=== PATIENT | female | born 1990 | race Caucasian/White ===

== ENCOUNTER 2020-10-23 15:58 | Inpatient (IN) | payer OTHER, SELFPAY ==
[2020-10-23] VITALS (17 sets, daily range): BP systolic 121–152; BP diastolic 62–99; PULSE 91–142; RESP 20; TEMP 36.9–37.1; BMI 53.6
[2020-10-23 17:12] LABS: Basophils Percent Auto 0.2 % (0.2-1.2); Eosinophils Absolute Auto 0.1 K/mm3 (0-0.3); Eosinophils Percent Auto 0.7 % (0-4.4); Hematocrit 36.3 % (37.0-47.0); Hemoglobin 11.4 g/dL (12.0-15.0); Immature Granulocyte Absolute 0.07 K/mm3 (0.00-0.031); Immature Granulocyte Percent A 0.7 % (0-0.5); Lymphocytes Absolute Auto 2.49 K/mm3 (0.9-3.2); Lymphocytes Percent Auto 23.8 % (18.3-44.2); Mean Corpuscular HGB Conc 31.4 g/dl (32-36); Mean Corpuscular Hemoglobin 24.2 pg (26-34); Mean Corpuscular Volume 77.1 fl (80-100); Mean Platelet Volume 10.4 fl (7.4-10.4); Monocytes Absolute Auto 0.6 K/mm3 (0.1-0.6); Monocytes Percent Auto 5.8 % (2.6-8.5); Neutrophils Absolute Auto 7.2 K/mm3 (1.3-6.7); Neutrophils Percent Auto 68.8 % (45.5-73.1); Platelet Count Result 284 k/mm3 (150-375); Red Blood Count 4.71 M/mm3 (4.2-5.4); Red Cell Distribution Width 17.2 % (11.5-14.5); White Blood Count 10.5 K/mm3 (4.5-10.0)
[2020-10-23] MEDS: DINOPROSTONE 10 MG VAG INSERT VAGINAL (17:15)
--- NOTE | 2020-10-23 17:15 | LDADM ---
This patient, Shalini Villagran, was admitted to Labor/Delivery/Recovery 107 on 10/23/20 at 15:58. Plans for labor, pain management and were discussed with patient. Patient/family oriented to hospital policies and general routines including ID bracelet, bed and alarms, visiting hours, pain management, procedures, bathroom and other care routines, personal items, smoking policy, room service/diet and guest tray routines, security routines, and visiting hours. Patient/Family are encouraged to report perceived risks to care and to ask questions if they do not understand what they are told or what they should do. See OBIX for further documentation.
[2020-10-23 17:28] LABS: Alanine Aminotransferase 13 U/L (4-35); Albumin Level 3.5 g/dL (3.5-5.1); Alkaline Phosphatase 181 U/L (38-126); Anion Gap 9 mmol/L (8-16); Aspartate Amino Transferase 23 U/L (14-36); Bilirubin,Total 0.3 mg/dL (0.2-1.3); Blood Urea Nitrogen 8 mg/dL (7-17); Calcium 9.1 mg/dL (8.4-10.2); Carbon Dioxide 19 mmol/L (22-30); Chloride 106 mmol/L (98-107); Estimated Glomerular Filt Rate > 60; Glucose 73 mg/dL (65-110); Potassium 3.6 mmol/L (3.4-5.0); Sodium 134 mmol/L (137-145); Uric Acid 5.3 mg/dL (2.5-7.5)
--- NOTE | 2020-10-23 17:32 | WPDANESEPPF ---
Anes - Initial Pre Proc Eval Procedure: labor epidural Date/Time: 10/23/20 17:32 Surgeon: Senia Case MD Pre Op Diagnosis: labor pain Pre Op Diagnosis: Induction of Labor for Hypertension in Patient Data Age: 30 Gender: F Height: Weight: Last Vital Signs Pulse 102 H 10/23/20 17:31 BP 134/79 10/23/20 17:31 Allergies Allergy/AdvReac Type Severity Reaction Status Date / Time No Known Allergies Allergy Verified 10/18/20 13:39 Home Medications Medication Instructions Recorded Confirmed Type ferrous sulfate mg 10/18/20 History prenat.vits,faith,shg-vmcs-iqnpn 1 tablet PO DAILY 10/18/20 10/18/20 History [ #2] Laboratory Tests 10/23/20 10/23/20 10/23/20 17:04 17:04 17:04 WBC 10.5 K/mm3 H K/mm3 (4.5-10.0) RBC 4.71 M/mm3 M/mm3 (4.2-5.4) Hgb 11.4 g/dL L g/dL (12.0-15.0) Hct 36.3 % L % (37.0-47.0) MCV 77.1 fl L fl (80-100) MCH 24.2 pg L pg (26-34) MCHC 31.4 g/dl L g/dl (32-36) RDW 17.2 % H % (11.5-14.5) Plt Count 284 k/mm3 k/mm3 (150-375) MPV 10.4 fl fl (7.4-10.4) Immature Gran % (Auto) 0.7 % H % (0-0.5) Neut % (Auto) 68.8 % % (45.5-73.1) Lymph % (Auto) 23.8 % % (18.3-44.2) Leake % (Auto) 5.8 % % (2.6-8.5) Eos % (Auto) 0.7 % % (0-4.4) Baso % (Auto) 0.2 % % (0.2-1.2) Lymph # (Auto) 2.49 K/mm3 K/mm3 (0.9-3.2) Leake # (Auto) 0.6 K/mm3 K/mm3 (0.1-0.6) Eos # (Auto) 0.1 K/mm3 K/mm3 (0-0.3) Baso # (Auto) 0.0 K/mm3 K/mm3 (0.0-0.1) Abs Immat Gran (auto) 0.07 K/mm3 H K/mm3 (0.00-0.031) Absolute Neuts (auto) 7.2 K/mm3 H K/mm3 (1.3-6.7) Absolute Nucleated RBC 0.0 K/mm3 K/mm3 (0.0-0.012) Nucleated RBC % 0.0 % % (0.0-0.2) Sodium Potassium Chloride Carbon Dioxide Anion Gap BUN Creatinine Estim Creat Clear Calc Estimated GFR Glucose Uric Acid Cancelled Calcium Total Bilirubin AST ALT Alkaline Phosphatase Total Protein Albumin RPR Pending 10/23/20 17:04 WBC RBC Hgb Hct MCV MCH MCHC RDW Plt Count MPV Immature Gran % (Auto) Neut % (Auto) Lymph % (Auto) Leake % (Auto) Eos % (Auto) Baso % (Auto) Lymph # (Auto) Leake # (Auto) Eos # (Auto) Baso # (Auto) Abs Immat Gran (auto) Absolute Neuts (auto) Absolute Nucleated RBC Nucleated RBC % Sodium 134 mmol/L L mmol/L (137-145) Potassium 3.6 mmol/L mmol/L (3.4-5.0) Chloride 106 mmol/L mmol/L (98-107) Carbon Dioxide 19 mmol/L L mmol/L (22-30) Anion Gap 9 mmol/L mmol/L (8-16) BUN 8 mg/dL mg/dL (7-17) Creatinine 0.60 mg/dL L mg/dL (0.7-1.0) Estim Creat Clear Calc Not Reportable Estimated GFR > 60 (59 - ) Glucose 73 mg/dL mg/dL (65-110) Uric Acid 5.3 mg/dL mg/dL (2.5-7.5) Calcium 9.1 mg/dL mg/dL (8.4-10.2) Total Bilirubin 0.3 mg/dL mg/dL (0.2-1.3) AST 23 U/L U/L (14-36) ALT 13 U/L U/L (4-35) Alkaline Phosphatase 181 U/L H U/L (38-126) Total Protein 7.0 g/dL g/dL (6.3-8.2) Albumin 3.5 g/dL g/dL (3.5-5.1) RPR Patient hx anesthesia problems: none Family hx anesthesia problems: none PMF Family History Family History (Updated 10/18/20 @ 13:41 by Deandre Snigh RN) Other No pertinent family history Social History Social History Substance use: never Spiritual care concerns: No Anes - Eval Final PreProcedure Day of Procedure 10/23/20 17:32 ASA class
[2020-10-23] MEDS: ZOLPIDEM TARTRATE (*CRX) 5 MG TABLET PO (22:13)
[2020-10-24] VITALS (168 sets, daily range): BP systolic 84–185; BP diastolic 51–151; PULSE 73–173; RESP 18–20; TEMP 36.5–37.4; O2SAT 96–100
[2020-10-24] MEDS: fentaNYL CITRATE INJ (*CRX) 100 MCG/2 ML VIAL 50 MCG IV PUSH ×2 (05:51→06:54)
[2020-10-24] MEDS: LACTATED RINGERS 1,000 ML 125 ML IV CONT ×2 (05:51→07:35)
[2020-10-24] MEDS: OXYTOCIN 30 UNITS/NS 500 ML 30 UNITS/500 ML BAG 6 UNITS IV CONT (06:37)
--- NOTE | 2020-10-24 08:03 | PM.IMHP ---
H&P: HPI History of Present Illness Date/Time: 10/24/20 08:03 Chief Complaint: induction of labor Narrative: Shalini is a 30yo at 37.3 for IOL for PIH. PC ratio last week 0.19. Denies sx. Had cervidil overnight, now has epidural. complicated by prepreg BMI 46. Review of Systems Review of Systems: All systems reviewed & are unremarkable except as noted in HPI and below PMFSH Family History Family History (Updated 10/23/20 @ 17:34 by Moon Wilhelm RN) Father Hypercholesteremia Social History Social History Smoking packs per day: 0.5 Smoking cigarettes per day: 10.0 Years smoked: 8 Smoking pack-years: 4.00 Smoking status: Former smoker Tobacco type: cigarettes Second hand tobacco smoke exposure: No Substance use: never Spiritual care concerns: No Meds Home Medications and Allergies Home Medications Medication Instructions Recorded Confirmed Type ferrous sulfate 27 mg PO HS 10/18/20 10/23/20 History prenat.vits,faith,tec-rhhx-luyen 1 tablet PO DAILY 10/18/20 10/23/20 History [ #2] Allergies Allergy/AdvReac Type Severity Reaction Status Date / Time No Known Allergies Allergy Verified 10/18/20 13:39 Vital Signs Vital Signs - 24 hr 10/23/20 16:23 10/23/20 16:31 10/23/20 16:32 Temperature 98.7 F Pulse Rate 123 H 101 H Respiratory Rate 20 Blood Pressure 121/74 130/62 Pulse Oximetry 10/23/20 17:01 10/23/20 17:31 10/23/20 18:00 Temperature 98.5 F Pulse Rate 106 H 102 H Respiratory Rate Blood Pressure 127/85 134/79 Pulse Oximetry 10/23/20 18:01 10/23/20 18:31 10/23/20 19:01 Temperature Pulse Rate 97 91 99 Respiratory Rate Blood Pressure 136/88 139/90 142/82 H Pulse Oximetry 10/23/20 19:25 10/23/20 19:31 10/23/20 21:38 Temperature Pulse Rate 142 H 110 H 118 H Respiratory Rate Blood Pressure 127/99 H 124/86 139/92 H Pulse Oximetry 10/23/20 21:46 10/23/20 22:01 10/23/20 22:16 Temperature Pulse Rate 107 H 101 H 104 H Respiratory Rate Blood Pressure 140/89 141/94 H 152/95 H Pulse Oximetry 10/23/20 22:31 10/23/20 22:46 10/24/20 00:21 Temperature Pulse Rate 107 H 106 H 114 H Respiratory Rate Blood Pressure 122/83 124/69 144/110 H Pulse Oximetry 10/24/20 00:30 10/24/20 00:31 10/24/20 00:46 Temperature 98.1 F Pulse Rate 112 H 109 H Respiratory Rate Blood Pressure 90/51 L 117/79 Pulse Oximetry 10/24/20 01:02 10/24/20 01:17 10/24/20 01:31 Temperature Pulse Rate 73 115 H 115 H Respiratory Rate Blood Pressure 185/151 H 150/92 H 112/70 Pulse Oximetry 10/24/20 05:41 10/24/20 05:45 10/24/20 05:46 Temperature Pulse Rate 137 H 129 H Respiratory Rate Blood Pressure 118/67 130/91 H Pulse Oximetry 99 10/24/20 05:50 10/24/20 05:55 10/24/20 06:00 Temperature Pulse Rate Respiratory Rate Blood Pressure Pulse Oximetry 100 100 100 10/24/20 06:01 10/24/20 06:05 10/24/20 06:10 Temperature Pulse Rate 127 H Respiratory Rate Blood Pressure 129/89 Pulse Oximetry 100 99 10/24/20 06:15 10/24/20 06:16 10/24/20 06:20 Temperature Pulse Rate 112 H Respiratory Rate Blood Pressure 134/92 H Pulse Oximetry 100 100 10/24/20 06:25 10/24/20 06:30 10/24/20 06:31 Temperature Pulse Rate 117 H Respiratory Rate Blood Pressure 136/104 H Pulse Oximetry 99 100 10/24/20 06:35 10/24/20 06:37 10/24/20 07:18 Temperature Pulse Rate 122 H Respiratory Rate Blood Pressure 133/94 H Pulse Oximetry 100 100 10/24/20 07:19 10/24/20 07:21 10/24/20 07:23 Temperature Pulse Rate 125 H 117 H Respiratory Rate Blood Pressure 137/91 H 139/92 H Pulse Oximetry 100 10/24/20 07:28 10/24/20 07:31 10/24/20 07:33 Temperature Pulse Rate 136 H 140 H Respiratory Rate Blood Pressure 122/88 127/66 Pulse Oximetry 100 100 10/24/20 07:35 10/24/20 07:36
--- NOTE | 2020-10-24 15:25 | PM.OBPRVD ---
OB - Delivery Note Procedure Delivery date: 10/24/20 Procedure: events: Induced HTN and Labor Induction Induction method: AROM, per pitocin protocol and per cervidil protocol Delivery monitor: external FHT and internal uterine Route of delivery: Laceration Description: Perineal - 2nd Degree Delivery repair: vicryl Specimen: Yes Quantitative Blood Loss (ml): 500 Anesthesia type: Epidural Disposition: floor Complications: placenta retained for 28 minutes Narrative: With adequate expulsive efforts by the mother, the baby's head was delivered OA. The baby's anterior shoulder was delivered under the pubic symphysis without difficulty. The posterior shoulder and the rest of the baby delivered without difficulty. The was placed on the mothers chest and suctioned and stimulated. The cord was clamped and cut after 30 seconds. Mother and baby both stable. Baby Date of : 10/24/20 Time of : 14:47 Weeks of gestation at delivery: 37 Infant gender: Female Weight (pounds): 7 Weight (ounces): 15 presentation: vertex Placenta delivery description: Spontaneous cord vessel description: 3 Vessels, Nuchal Cord and Delayed Cord Clamping score one minute: 8 score five minutes: 9
[2020-10-24] MEDS: OXYTOCIN 30 UNITS/NS 500 ML 30 UNITS/500 ML BAG 125 UNITS IV CONT (15:33)
[2020-10-24] MEDS: BENZOCAINE 20% AER SPR (*SP) 56 GM CAN 1 SPRAY TOPICAL (17:16)
[2020-10-24] MEDS: WITCH HAZEL 40 PADS 1 PAD TOPICAL (17:16)
[2020-10-24] MEDS: IBUPROFEN 600 MG TABLET PO (17:18)
--- NOTE | 2020-10-24 18:04 | OBPPTRN ---
1750 Patient transferred to post room #280 via W/C. Support person present. Oriented to unit, room, information board, rooming in, admission packet and security measures. Patient verbalizes understanding.
[2020-10-25 05:19] VITALS: BP 130/88; PULSE 98; RESP 16; TEMP 36.1; O2SAT 100
[2020-10-25 05:21] LABS: Hematocrit 32.7 % (37.0-47.0); Hemoglobin 10.2 g/dL (12.0-15.0)
[2020-10-25 06:50] LABS: Rapid Plasma Reagin Non-Reactive (NonReactive)
--- NOTE | 2020-10-25 07:33 | P.PNOB_ITS ---
OB - PN: Subj Subjective Date/time seen: 10/25/20 07:33 Patient comments: pain well controlled baby status: NICU feeding status: pumping and storing Narrative: Baby Leidy transferred to [facility] for respiratory needs. Mom would like discharge. BPs 120s-140s/70s-80s. Denies FORTUNE/BV/EP. OB - PN: Obj Data Labs CBC & Chem 7: 10/25/20 05:11 10/23/20 17:04 Labs: Laboratory Results - last 24 hr 10/23/20 10/25/20 17:04 05:11 Hgb 10.2 L Hct 32.7 L RPR Non-reactive OB - PN A/P Plan day: 1 Plan: routine care and discharge home Comments: DC home to be with baby at [facility]. PreE precautions given. NO severe BPs during entire induction and pp course. FU here for BP check 1-2 days and next week with me. Time Spent With Patient Time: Total time spent is greater than 50% in coordination of care (as documented) at patient's floor/unit and/or counseling patient: Time with patient: less than 15 minutes Exam Narrative: NAD abdomen soft, nontender, fundus firm below the umbilicus Extremities nontender, 1+ edema
--- NOTE | 2020-10-25 07:37 | PM.DS ---
DS: Admitting Diagnosis Admitting Diagnosis pih 37 weeks DS: Discharge Diagnosis Discharge Diagnosis (1) PIH ( induced hypertension): Code(s): O13.9 - Gestational [-induced] hypertension without significant proteinuria, unspecified trimester Status: Acute DS: Summary Hospital Course Reason for hospitalization: induction due to PIH at 37 weeks Hospital Course: Shalini was induced with cervidil, pitocin, and AROM. She had a spontaneous and her course was uncomplicated. She never had severe range BPs during her entire admission. Baby was transferred to [facility] so she was discharged on PPD 1. Status at Discharge Functional status at discharge: independent ambulation Time Spent with Patient Time attestation: Total time spent providing and/or coordinating discharge services: Exam Narrative: NAD abdomen soft, appropriately tender Ext non tender, 1+ edema DS: Data Data Completed and Pending Pending studies at discharge: Pending at discharge 10/24/20 15:10 Surgical [PTH] Routine Labs on day of discharge: Labs from last 24 hours 10/25/20 10/23/20 05:11 17:04 Hgb 10.2 L Hct 32.7 L RPR Non-reactive Discharge Plan Discharge Attending physician on discharge: Senia Case Discharging Clinician: Senia Case Anticipated Discharge Date/Time: 10/25/20 11:00 Patient Disposition: Home, Self-Care Activity: may shower and pelvic rest Diet: as tolerated Discharge Instructions: ibuprofen 600mg every 6 hours as needed Patient Instructions: Antibiotic Form Stand Alone Forms: General Discharge Information Follow-up/Referrals: Senia Case MD [Physician] - 1 Week Discharge Medications: Continued ferrous sulfate 134 mg (27 mg iron) Tablet 27 mg PO HS RF: 0 #2 Tablet 1 tablet PO DAILY RF: 0 Date of admission: 10/23/20 15:58 Primary Care Provider: PHYSICIAN,PRE PAROLE COUNSELING AIDE Admitting Provider: Senia Case Attending physician on admission: Senia Case Condition: Stable
[2020-10-25 07:50] VITALS: BP 144/88; PULSE 100; RESP 18; TEMP 36.3; O2SAT 100
--- NOTE | 2020-10-25 08:30 | PC.NURSE ---
Consult with pt., mother is pumping due to infant transfer to [facility]. Mother voices concerns she is pumping and does not have more than a few drops each session. Assured mother this is normal, reviewed progression of colostrum into breastmilk within a few days. Reviewed breast pump care and usage, pumping schedule, nipple care, and collection and storage of breast milk. Encouraged [id number], breast massage and manual expression to stimulate supply. Pumping log provided and reviewed. Assessed patient for correct flange size, placement and draw. Patient verbalizes and demonstrates understanding of instructions. Mother has a Medela for home use. Reviewed regular medications mother is taking. Information provided per Diya. Reviewed community resources on the [facility] website and in the Mom/Baby guide. Information on outpatient services provided. Mother has no further questions at this time.
[2020-10-25] MEDS: MULTIVIT/MIN/PREN/FOL AC/IRON TABLET 1 TAB PO (09:19)
[2020-10-25] MEDS: IBUPROFEN 600 MG TABLET PO (09:19)
[2020-10-25] MEDS: DOCUSATE SODIUM 100 MG CAPSULE PO (09:19)
--- NOTE | 2020-10-25 09:30 | WPDANLDPN2 ---
Anes-Prog Note L&D Date/Time: 10/25/20 09:30 Comfortable throughout: labor and delivery Neuraxial method: epidural Epidural/Spinal procedure site: clean & non-tender Neuro status: Neuro function grossly intact. Cardiovascular status: normal Respiratory status: normal Airway patency: baseline Post-Op hydration status: normal Vital Signs: Last Vital Signs Temp 36.3 C L 10/25/20 07:50 Pulse 100 10/25/20 07:50 Resp 18 10/25/20 07:50 BP 144/88 H 10/25/20 07:50 Pulse Ox 100 10/25/20 07:50 Pain score (VAS): 0/10 I/O: Intake & Output 10/24/20 10/25/20 10/25/20 23:59 07:59 15:59 Output Total 300 Balance -300 Post-procedural complaints: none Patient feedback: Patient satisfied with anesthetic care.
[2020-10-25] MEDS: MEASLES,MUMPS,RUBELLA VACCINE 0.5 ML VIAL SUB-Q (09:37)
[2020-10-25 11:29] VITALS: BP 145/83; PULSE 92; RESP 16; TEMP 36.6; O2SAT 100
[2020-10-27 10:57] VITALS: BP 131/84; PULSE 90; RESP 20; TEMP 36.8; O2SAT 100
== END 2020-10-25 12:45 | disposition home or self-care (01) | DRG 807 ==
LOC: ANHLDR 16:50 → ANHOB2 10-24 17:59
PROVIDERS: Admitting Provider Obstetrics & Gynecology; Visit Provider Obstetrics & Gynecology
DX: O13.4 Gestational [pregnancy-induced] hypertension without significant proteinuria, complicating childbirth (principal); Z37.0 Single live birth; O70.1 Second degree perineal laceration during delivery; Z3A.37 37 weeks gestation of pregnancy; O99.214 Obesity complicating childbirth; E66.9 Obesity, unspecified; O69.81X0 Labor and delivery complicated by cord around neck, without compression, not applicable or unspecified; O76 Abnormality in fetal heart rate and rhythm complicating labor and delivery
CPT/HCPCS: 36415; 80053; 84550; 85014; 85018; 85025; 86592; 86850; 86900; 86901; 90710; A9270; J2590; J2795; J3010; J7120

== ENCOUNTER 2022-12-27 15:00 | Inpatient (IN) | payer OTHER, SELFPAY ==
[2022-12-27] VITALS (24 sets, daily range): BP systolic 120–170; BP diastolic 66–102; PULSE 82–98; TEMP 36.6; BMI 53.7
[2022-12-27 13:50] LABS: Basophils Percent Auto 0.1 % (0.2-1.2); Eosinophils Absolute Auto 0.1 K/mm3 (0-0.3); Eosinophils Percent Auto 0.7 % (0-4.4); Hematocrit 37.4 % (37.0-47.0); Immature Granulocyte Absolute 0.06 K/mm3 (0.00-0.031); Immature Granulocyte Percent A 0.7 % (0-0.5); Lymphocytes Absolute Auto 2.36 K/mm3 (0.9-3.2); Lymphocytes Percent Auto 26.1 % (18.3-44.2); Mean Corpuscular HGB Conc 32.1 g/dl (32-36); Mean Corpuscular Hemoglobin 26.5 pg (26-34); Mean Corpuscular Volume 82.7 fl (80-100); Mean Platelet Volume 11.4 fl (7.4-10.4); Monocytes Absolute Auto 0.4 K/mm3 (0.1-0.6); Monocytes Percent Auto 4.6 % (2.6-8.5); Neutrophils Absolute Auto 6.1 K/mm3 (1.3-6.7); Neutrophils Percent Auto 67.8 % (45.5-73.1); Platelet Count Result 208 k/mm3 (150-375); Red Blood Count 4.52 M/mm3 (4.2-5.4); Red Cell Distribution Width 15.9 % (11.5-14.5)
[2022-12-27 13:53] LABS: Creatinine Urine 123.6 mg/dL; Total Protein Urine Random 9 mg/dL; Ur Ttl Prot Creatinine Ratio 0.07 mg/mg (0-0.20)
[2022-12-27 13:58] LABS: Alanine Aminotransferase 20 U/L (6-35); Albumin Level 3.4 g/dL (3.5-5.1); Alkaline Phosphatase 158 U/L (38-126); Anion Gap 6 mmol/L (8-16); Aspartate Amino Transferase 26 U/L (14-36); Bilirubin,Total 0.5 mg/dL (0.2-1.3); Blood Urea Nitrogen 8 mg/dL (7-17); Calcium 8.6 mg/dL (8.4-10.2); Carbon Dioxide 20 mmol/L (22-30); Chloride 109 mmol/L (98-107); Estimated Glomerular Filt Rate > 60; Glucose 118 mg/dL (65-110); Potassium 3.4 mmol/L (3.4-5.0); Sodium 135 mmol/L (137-145); Uric Acid 6.2 mg/dL (2.5-7.5)
[2022-12-27 14:14] LABS: Appearance Urine Cloudy (Clear); Bacteria Urine 4+ /hpf; Bilirubin Urine Negative (Negative); Blood Urine Negative (Negative); Color Urine Yellow (Yellow); Glucose Urine UA Negative (Negative); Ketones Urine Trace mg/dL (Negative); Leukocyte Esterase Ur 2+ LEU/UL (NEGATIVE); Need Manual Microscopic Reviewed; Nitrate Urine Negative (Negative); Protein Urine Trace mg/dL (Negative); Squamous Epithelial Cell Urine Occasional /hpf (Few); Urobilinogen Urine 0.2 mg/dL (<2.0); WBC Urine 51-100 /hpf (0-3); pH Urine 5.5 (5.0-9.0)
[2022-12-27 14:25] LABS: Add Urine Microscopic? YES
[2022-12-27] MEDS: miSOPROStol 25 MCG TABLET 50 MCG SUBLINGUAL (16:07)
--- NOTE | 2022-12-27 16:11 | LDADM ---
This patient, Shalini Villagran, was admitted to Labor/Delivery/Recovery 108 on 12/27/22 at 15:00. Plans for labor, pain management and were discussed with patient. Patient/family oriented to hospital policies and general routines including ID bracelet, bed and alarms, visiting hours, pain management, procedures, bathroom and other care routines, personal items, smoking policy, room service/diet and guest tray routines, security routines, and visiting hours. Patient/Family are encouraged to report perceived risks to care and to ask questions if they do not understand what they are told or what they should do. See OBIX for further documentation.
--- NOTE | 2022-12-27 16:43 | PM.IMHP ---
H&P: HPI History of Present Illness Date/Time: 12/27/22 16:43 Chief Complaint: elevated blood pressure in office, pt sent over for evaluation, denies headache, visual changes, epigastric pain. Labs reviewed with Dr. Oviedo and will proceed with IOL. complicated by amenia, obesity, hx LGA infant. Review of Systems Review of Systems: All systems reviewed & are unremarkable except as noted in HPI and below PMFSH Family History Family History Father Hypercholesteremia Social History Social History Smoking packs per day: 0.5 Smoking cigarettes per day: 10.0 Years smoked: 8 Smoking pack-years: 4.00 Smoking status: Never smoker Tobacco type: cigarettes Second hand tobacco smoke exposure: No Substance use: never Lack of Transportation: No Lack of Food: Never True Current Housing: I Have Housing Concerned About Future Housing: No Difficulty Paying Gas/Electric Bills: No Difficulty Paying for Meds: No Currently Unemployed: No Education: High School Diploma/GED Difficulty w/ Childcare or Family Care: No Spiritual care concerns: No Meds Home Medications and Allergies Home Medications Medication Instructions Recorded Confirmed Type ferrous sulfate 134 mg (27 mg 27 mg PO HS 10/18/20 12/20/22 History iron) tablet prenat.vits,faith,jym-cvog-bzypd 1 tablet PO DAILY 10/18/20 12/20/22 History aspirin 81 mg chewable tablet 81 mg PO DAILY 12/20/22 12/27/22 History Allergies Allergy/AdvReac Type Severity Reaction Status Date / Time No Known Allergies Allergy Verified 12/20/22 12:28 Vital Signs Vital Signs - 24 hr 12/27/22 13:16 12/27/22 13:46 12/27/22 14:01 Pulse Rate 94 93 95 Blood Pressure 153/82 H 161/83 H 170/90 H 12/27/22 14:16 12/27/22 14:31 12/27/22 14:46 Pulse Rate 91 91 91 Blood Pressure 166/83 H 143/73 H 135/83 12/27/22 16:07 12/27/22 16:31 Pulse Rate 87 92 Blood Pressure 146/89 H 154/85 H Exam Const: General: cooperative and healthy appearing Chest: Chest palpation & inspection: normal inspection of the chest Resp: Effort & Inspection: normal respiratory effort GI: Other: soft Skin: General skin exam: normal color Neuro: General: patient oriented x3 Extrem: Right lower extremity: edema Details: 2+ Left lower extremity: edema Details: 2+ H&P: Results Labs Labs: Short CBC 12/27/22 Range/Units 13:25 WBC 9.0 (4.5-10.0) K/mm3 Hgb 12.0 (12.0-15.0) g/dL Hct 37.4 (37.0-47.0) % Plt Count 208 (150-375) k/mm3 BMP 12/27/22 13:25 Sodium 135 L Potassium 3.4 Chloride 109 H Carbon Dioxide 20 L BUN 8 Creatinine 0.60 L Glucose 118 H Calcium 8.6 Liver Function 12/27/22 Range/Units 13:25 Total Bilirubin 0.5 (0.2-1.3) mg/dL AST 26 (14-36) U/L ALT 20 (6-35) U/L Alkaline Phosphatase 158 H (38-126) U/L Albumin 3.4 L (3.5-5.1) g/dL Urine 12/27/22 Range/Units 13:25 Urine Color Yellow (Yellow) Urine Appearance Cloudy H (Clear) Urine pH 5.5 (5.0-9.0) Ur Specific Hull 1.020 (1.001-1.035) Urine Protein Trace (Negative) mg/dL Urine Glucose (UA) Negative (Negative) mg/dL Assessment and Plan Assessment and plan (1) PIH ( induced hypertension): Code(s): O13.9 - Gestational [-induced] hypertension without significant proteinuria, unspecified trimester Status: Acute Plan gestational hypertension plan IOL co-managing care with dr. ibrahim will start labetalol 200mg bid
--- NOTE | 2022-12-27 17:01 | PC.NURSE ---
1415--Labs and BP's reported to Dr. Oviedo. Decision to induce called.
[2022-12-27] MEDS: LABETALOL HCL 100 MG TABLET 200 MG PO (17:31)
--- NOTE | 2022-12-27 19:03 | WPDANESEPPF ---
Anes - Initial Pre Proc Eval Procedure: Labor Epidural Date/Time: 12/27/22 19:03 Surgeon: Aniceto Oviedo MD Pre Op Diagnosis: Labor Pain Pre Op Diagnosis: MIL Patient Data Age: 32 Gender: F Height: 1.63 m Weight: 142 kg Last Vital Signs Temp 36.6 C 12/27/22 16:30 Pulse 98 12/27/22 19:00 BP 155/84 H 12/27/22 19:00 Allergies Allergy/AdvReac Type Severity Reaction Status Date / Time No Known Allergies Allergy Verified 12/20/22 12:28 Home Medications Medication Instructions Recorded Confirmed Type ferrous sulfate 134 mg (27 mg 27 mg PO HS 10/18/20 12/20/22 History iron) tablet prenat.vits,faith,muu-rive-wbyvc 1 tablet PO DAILY 10/18/20 12/20/22 History aspirin 81 mg chewable tablet 81 mg PO DAILY 12/20/22 12/27/22 History Laboratory Tests 12/27/22 12/27/22 13:25 16:01 WBC 9.0 K/mm3 (4.5-10.0) RBC 4.52 M/mm3 (4.2-5.4) Hgb 12.0 g/dL (12.0-15.0) Hct 37.4 % (37.0-47.0) MCV 82.7 fl (80-100) MCH 26.5 pg (26-34) MCHC 32.1 g/dl (32-36) RDW 15.9 H % (11.5-14.5) Plt Count 208 k/mm3 (150-375) MPV 11.4 H fl (7.4-10.4) Immature Gran % (Auto) 0.7 H % (0-0.5) Neut % (Auto) 67.8 % (45.5-73.1) Lymph % (Auto) 26.1 % (18.3-44.2) Roosevelt % (Auto) 4.6 % (2.6-8.5) Eos % (Auto) 0.7 % (0-4.4) Baso % (Auto) 0.1 L % (0.2-1.2) Lymph # (Auto) 2.36 K/mm3 (0.9-3.2) Roosevelt # (Auto) 0.4 K/mm3 (0.1-0.6) Eos # (Auto) 0.1 K/mm3 (0-0.3) Baso # (Auto) 0.0 K/mm3 (0.0-0.1) Abs Immat Gran (auto) 0.06 H K/mm3 (0.00-0.031) Absolute Neuts (auto) 6.1 K/mm3 (1.3-6.7) Absolute Nucleated RBC 0.0 K/mm3 (0.0-0.012) Nucleated RBC % 0.0 % (0.0-0.2) Sodium 135 L mmol/L (137-145) Potassium 3.4 mmol/L (3.4-5.0) Chloride 109 H mmol/L (98-107) Carbon Dioxide 20 L mmol/L (22-30) Anion Gap 6 L mmol/L (8-16) BUN 8 mg/dL (7-17) Creatinine 0.60 L mg/dL (0.7-1.0) Estim Creat Clear Calc Not Reportable Estimated GFR > 60 (59 - ) Glucose 118 H mg/dL (65-110) Uric Acid 6.2 mg/dL (2.5-7.5) Calcium 8.6 mg/dL (8.4-10.2) Total Bilirubin 0.5 mg/dL (0.2-1.3) AST 26 U/L (14-36) ALT 20 U/L (6-35) Alkaline Phosphatase 158 H U/L (38-126) Total Protein 7.0 g/dL (6.3-8.2) Albumin 3.4 L g/dL (3.5-5.1) Urine Color Yellow (Yellow) Urine Appearance Cloudy H (Clear) Urine pH 5.5 (5.0-9.0) Ur Specific [place] 1.020 (1.001-1.035) Urine Protein Trace mg/dL (Negative) Urine Glucose (UA) Negative mg/dL (Negative) Urine Ketones Trace H mg/dL (Negative) Ur Blood (Man) Negative (Negative) Urine Nitrate Negative (Negative) Urine Bilirubin Negative (Negative) Urine Urobilinogen 0.2 mg/dL (<2.0) Ur Leukocyte Esterase 2+ H CYNDEE/UL (NEGATIVE) Add Ur Microanalysis Reviewed Urine RBC 3-5 H /hpf (0-2) Urine WBC 51-100 /hpf (0-3) Ur Squamous Epith Cells Occasional /hpf (Few) Urine Bacteria 4+ H /hpf Urine Casts 3-5 U Random Total Protein 9 mg/dL Urine Creatinine 123.6 mg/dL Protein/Creat Ratio 2 0.07 mg/mg (0-0.20) RPR Pending Blood Type O Positive Antibody Screen Negative Patient hx anesthesia problems: none Family hx anesthesia problems: none Results Review: All pre-operative results and documents have been reviewed as part of the pre-operative evaluation. [facility] Past Medical History Medical History (Updated 12/27/22 @ 19:04 by Lyn Cabrera CRNA) PIH ( induced hypertension) Family History Family History Fath
[2022-12-27] MEDS: LACTATED RINGERS 1,000 ML 125 ML IV CONT (22:10)
[2022-12-27] MEDS: OXYTOCIN 30 UNITS/NS 500 ML 30 UNITS/500 ML BAG IV CONT (22:10)
[2022-12-28] VITALS (93 sets, daily range): BP systolic 101–180; BP diastolic 46–162; PULSE 75–129; RESP 16–20; TEMP 36.3–36.7; O2SAT 85–100
[2022-12-28] MEDS: fentaNYL CITRATE INJ (*CRX) 100 MCG/2 ML VIAL 50 MCG IV PUSH (02:10)
[2022-12-28] MEDS: fentaNYL CITRATE INJ (*CRX) 100 MCG/2 ML VIAL IV PUSH ×2 (03:28→05:40)
--- NOTE | 2022-12-28 05:58 | PM.OBPNLAB ---
Pain Control Date/time seen: 12/28/22 05:58 Comments: SVE 3.5 cm/80/-2, AROM clear odorless fluid, anticipate vaginal delivery
--- NOTE | 2022-12-28 06:20 | WPDANESEPN ---
Anes - Epidural Procedure Note Date/Time: 12/28/22 06:20 Consent: I have discussed with the patient/family/POA, the placement of an epidural catheter and the use of epidural narcotic/local anesthetic for labor analgesia and/or postoperative pain management, including associated potential risks, benefits, complications and side effects. I have discussed alternative methods of labor analgesia and/or postoperative pain management. The patient/family/POA, understand(s) and wish(es) to proceed with epidural narcotic/local anesthetic for labor analgesia and/or postoperative pain management. Time-Out: A pre-procedural Time-Out was completed immediately before starting the procedure and confirmed: Patient Identification, Site, Procedure, Patient Position and the Availability of Requisite Equipment. Clinical Indications: Labor pain Epidural Insertion Note Patient position: sitting Skin prep: chlorhexidine and sterile drape Needle: 18g Tuohy-Schliff Catheter: 20g Unstyleted Technique: Loss of resistance. Level of insertion: L4/5 Catheter skin shaunna (cm): 13 Length in epidural space (cm): 7 Skin anesthesia: lidocaine 1% Test dose: 1.5% Lidocaine with 1:[id number] Epi, negative for subarachnoid Inj and negative for intravascular Inj Time of test dose: 06:06 Observations: tolerated well Complications: none
[2022-12-28] MEDS: LABETALOL HCL 100 MG TABLET 200 MG PO ×2 (06:35→21:30)
[2022-12-28] MEDS: LACTATED RINGERS 1,000 ML 125 ML IV CONT (06:42)
--- NOTE | 2022-12-28 07:36 | PM.OBPRVD ---
OB - Delivery Note Procedure Delivery date: 12/28/22 Procedure: Events: Gestational Hypertension Induction method: AROM, Per Misoprostol Protocol and Per Pitocin Protocol Delivery monitor: External FHT, External Uterine and Internal Uterine Route of delivery: Episiotomy description: None Laceration Description: Vaginal Delivery repair: vicryl Specimen: Yes Quantitative Blood Loss (ml): 300 Anesthesia type: Epidural Disposition: Floor Baby Date of : 12/28/22 Time of : 07:23 Weeks of gestation at delivery: 37 gender: Male presentation: vertex position: Left Occiput Anterior Placenta delivery description: Spontaneous Cord Vessel Description: 3 Vessels and Delayed Cord Clamping score one minute: 9 score five minutes: 9 Narrative: mother and baby skin to skin in stable condition
[2022-12-28] MEDS: OXYTOCIN 30 UNITS/NS 500 ML 30 UNITS/500 ML BAG 125 UNITS IV CONT (08:04)
[2022-12-28] MEDS: POLYSACCHARIDE IRON COMPLEX 150 MG CAPSULE PO (09:54)
[2022-12-28] MEDS: MULTIVIT/MIN/PREN/FOL AC/IRON TABLET 1 TAB PO (09:54)
[2022-12-28] MEDS: WITCH HAZEL 40 PADS 1 PAD TOPICAL (09:55)
[2022-12-28] MEDS: BENZOCAINE 20% AER SPR (*SP) 56 GM CAN 1 SPRAY TOPICAL (09:55)
[2022-12-28] MEDS: IBUPROFEN 600 MG TABLET PO (12:43)
--- NOTE | 2022-12-28 12:51 | PC.NURSE ---
Patient transferred to post room #289 via wheelchair. Support person present. Oriented to unit, room, information board, rooming in, admission packet and security measures. Patient verbalizes understanding.
[2022-12-29] VITALS (7 sets, daily range): BP systolic 132–144; BP diastolic 83–97; PULSE 78–91; RESP 16–18; TEMP 36.7–36.8; O2SAT 100
[2022-12-29 05:48] LABS: Hematocrit 32.1 % (37.0-47.0); Hemoglobin 10.3 g/dL (12.0-15.0)
[2022-12-29] MEDS: IBUPROFEN 600 MG TABLET PO ×3 (09:03→22:14)
[2022-12-29] MEDS: LABETALOL HCL 100 MG TABLET 200 MG PO ×2 (09:04→21:57)
--- NOTE | 2022-12-29 09:45 | PM.OBPNVD ---
OB - PN: Subj Subjective Date/time seen: 12/29/22 09:45 Interval history: pp day1 gestational HTN, blood pressures stable denies headache, visual changes, epigastric pain plan d/c home tomorrow OB - PN: Obj Data Labs 12/29/22 05:37 12/27/22 13:25 Labs: Laboratory Results - last 24 hr 12/29/22 05:37 Hgb 10.3 L Hct 32.1 L OB - PN A/P Plan day: 1 Plan: routine care Time Spent With Patient Time: Total time spent is greater than 50% in coordination of care (as documented) at patient's floor/unit and/or counseling patient: Review of Systems Review of Systems: All systems reviewed & are unremarkable except as noted in HPI and below Exam Const: General: cooperative and healthy appearing Resp: Effort & Inspection: normal respiratory effort Cardio: Rate: regular rate Rhythm: regular rhythm GI: Other: soft Back/Spine/Pelvis: Back: no CVA tenderness Skin: General skin exam: normal color Extrem: Right lower extremity: edema Details: 2+ Left lower extremity: edema Details: 2+ Psych: Appearance: grossly normal
--- NOTE | 2022-12-29 12:27 | WPDANLDPN2 ---
Anes-Prog Note L&D Date/Time: 12/29/22 12:27 Comfortable throughout: labor and delivery Neuraxial method: epidural Epidural/Spinal procedure site: clean & non-tender Neuro status: Neuro function grossly intact. Cardiovascular status: normal Respiratory status: normal Airway patency: baseline Mental status: baseline Post-Op hydration status: normal Vital Signs: Last Vital Signs Temp 36.7 C 12/28/22 23:45 Pulse 78 12/29/22 09:04 Resp 20 12/28/22 23:45 BP 132/83 12/29/22 05:30 Pulse Ox 100 12/28/22 16:32 O2 Del Method Room Air 12/28/22 10:22 Pain score (VAS): 2/10 I/O: Intake & Output 12/28/22 12/29/22 12/29/22 23:59 07:59 15:59 Intake Total 220 500 Output Total 360 240 Balance -140 260 Post-procedural complaints: none Patient feedback: Patient satisfied with anesthetic care.
[2022-12-29] MEDS: DOCUSATE SODIUM 100 MG CAPSULE PO (16:07)
[2022-12-29 21:57] LABS: Rapid Plasma Reagin Non-Reactive (NonReactive)
[2022-12-30 00:06] VITALS: BP 134/76; PULSE 91; RESP 18; TEMP 36.6; O2SAT 99
[2022-12-30 05:50] VITALS: BP 128/81; PULSE 74; RESP 18; TEMP 36.6; O2SAT 100
[2022-12-30 08:00] VITALS: PULSE 72; RESP 18; O2SAT 100
[2022-12-30 08:30] VITALS: BP 136/85; PULSE 72; RESP 16; TEMP 36.6; O2SAT 100
[2022-12-30] MEDS: IBUPROFEN 600 MG TABLET PO (09:45)
[2022-12-30 09:46] VITALS: PULSE 72
[2022-12-30] MEDS: LABETALOL HCL 100 MG TABLET 200 MG PO (09:46)
[2022-12-30 12:20] VITALS: BP 136/88; PULSE 76; RESP 18; TEMP 37.1; O2SAT 100
--- NOTE | 2022-12-30 13:22 | PM.OBPNVD ---
OB - PN: Subj Subjective Date/time seen: 12/30/22 13:22 Interval history: pp day2 gestational HTN, blood pressures stable denies headache, visual changes, epigastric pain plan d/c home toDAY OB - PN: Obj Data Labs 12/29/22 05:37 12/27/22 13:25 Labs: Laboratory Results - last 24 hr 12/27/22 16:01 RPR Non-reactive OB - PN A/P Plan day: 2 Plan: routine care and discharge home Time Spent With Patient Time: Total time spent is greater than 50% in coordination of care (as documented) at patient's floor/unit and/or counseling patient: Review of Systems Review of Systems: All systems reviewed & are unremarkable except as noted in HPI and below Exam Const: General: cooperative and healthy appearing Chest: Chest palpation & inspection: normal inspection of the chest Resp: Effort & Inspection: normal respiratory effort Cardio: Rate: regular rate GI: Other: SOFT Extrem: Right lower extremity: edema Left lower extremity: edema Psych: Appearance: grossly normal
--- NOTE | 2022-12-30 13:24 | P.DS_ITS ---
DS: Admitting Diagnosis Discharge Date 12/30/22 Admitting Diagnosis gestational HTN, IOL DS: Discharge Diagnosis Discharge Diagnosis (1) PIH ( induced hypertension): Code(s): O13.9 - Gestational [-induced] hypertension without significant proteinuria, unspecified trimester Status: Acute (2) Vaginal delivery: Code(s): O80 - Encounter for full-term uncomplicated delivery Status: Acute OB - DS: Summary OB Procedures : PIH Mgmt OB Procedures Intrapartum: Spontaneous Vag Delivery OB Procedures: : None Time Spent with Patient Time attestation: Total time spent providing and/or coordinating discharge services: DS: Data Data Completed and Pending Pending studies at discharge: Pending at discharge 12/28/22 08:46 Surgical [PTH] Routine Labs on day of discharge: Labs from last 24 hours 12/27/22 16:01 RPR Non-reactive Discharge Plan Discharge Attending physician on discharge: Sergio Mohan Discharging Clinician: Yarely Zepeda Patient Disposition: Home, Self-Care Activity: pelvic rest Diet: regular Patient Instructions: Antibiotic Form Stand Alone Forms: General Discharge Information Follow-up/Referrals: Yarely Zepeda, CNM [Certified Nurse Mortgage Processing Manager] - 1 Week Discharge Medications: New ibuprofen 600 mg Tablet 600 mg PO Q6H PRN (Reason: Cramping) Qty: 30 0RF Continued prenat.vits,faith,roe-hacf-buxar Tablet 1 tablet PO DAILY Discontinued ferrous sulfate 134 mg (27 mg iron) Tablet 27 mg PO HS aspirin [Baby Aspirin] 81 mg Tablet,Chewable 81 mg PO DAILY Date of admission: 12/27/22 15:00 Primary Care Provider: AnaMilton Admitting Provider: Aniceto Oviedo Attending physician on admission: Aniceto Oviedo Condition: Stable
[2023-01-01 09:19] VITALS: BP 139/87; PULSE 78; RESP 18; TEMP 36.7; O2SAT 100
== END 2022-12-30 14:05 | disposition home or self-care (01) | DRG 807 ==
LOC: ANHOBOP 15:15 → ANHLDR 15:15 → ANHOB2 12-28 13:04
PROVIDERS: Advanced Practice Midwife; Admitting Provider Obstetrics & Gynecology; PCP Hospitalist; Visit Provider Obstetrics & Gynecology
DX: O13.4 Gestational [pregnancy-induced] hypertension without significant proteinuria, complicating childbirth (principal); Z37.0 Single live birth; Z3A.37 37 weeks gestation of pregnancy; O71.4 Obstetric high vaginal laceration alone
CPT/HCPCS: 36415; 59025; 80053; 81001; 82570; 84156; 84550; 85014; 85018; 85025; 86592; 86850; 86900; 86901; 87086; 88307; A9270; J2590; J2795; J3010; J7120